=== PATIENT | male | born 2000 | race African-American/Black ===

== ENCOUNTER 2024-07-29 01:44 | Emergency (ER) | payer MEDICAID ==
[~2024-07-29] VITALS: Ht 175.3 cm; Wt 55.0 kg
[2024-07-29 02:03] VITALS: O2SAT 100
[2024-07-29 02:33] VITALS: BP 107/49; PULSE 66; RESP 18; TEMP 98.6; O2SAT 99
[2024-07-29] MEDS: DIPHENHYDRAMINE 25MG CAPSULE PO ONE (03:10)
[2024-07-29 04:24] LABS: CHLORIDE 109 mEq/L (98-107); POTASSIUM 3.6 mEq/L (3.5-5.1); SODIUM 138 mEq/L (136-145)
[2024-07-29 04:25] LABS: CARBON DIOXIDE 25 mEq/L (21-32)
[2024-07-29 04:26] LABS: CALCIUM 9.3 mg/dL (8.7-10.4)
[2024-07-29 04:30] LABS: CREATININE 0.9 mg/dL (0.6-1.3); GLUCOSE 87 mg/dL (70-105)
[2024-07-29 04:31] LABS: UREA NITROGEN BLOOD 15 mg/dL (9-23)
[2024-07-29 04:32] LABS: ALANINE AMINOTRANSFERASE 14 IU/L (10-49); ALBUMIN 4.3 g/dL (3.2-4.8); ASPARTATE AMINOTRANSFERASE 24 IU/L (<34)
[2024-07-29 04:33] LABS: BILIRUBIN TOTAL 0.4 mg/dL (0.1-1.0); PROTEIN TOTAL 7.6 g/dL (6.0-8.3)
== END 2024-07-29 02:56 | disposition left against medical advice (07) ==
LOC: ER 01:44
DX: L29.9 Pruritus, unspecified (principal)
CPT/HCPCS: 99283; 80053; 36415; Q0163